=== PATIENT | female | born 1940 | race Caucasian/White ===

== ENCOUNTER 2023-09-18 11:37 | Emergency (ER) | payer BC ==
[~2023-09-18] VITALS: Ht 165.1 cm; Wt 80.0 kg
[2023-09-18 11:41] VITALS: O2SAT 96
[2023-09-18] MEDS ORDERED: PREDNISONE 20MG TABLET PO ONE (12:15)
[2023-09-18] MEDS ORDERED: SODIUM CHLORIDE 0.9% 1,000 ML IV ONE (12:15)
[2023-09-18] MEDS ORDERED: DIPHENHYDRAMINE 50MG/ML VIAL IV ONE (12:15)
[2023-09-18 12:34] LABS: BASOPHILS % 0.2 % (0.0-2.0); HEMATOCRIT. 43.1 % (36.0-48.0); HEMOGLOBIN. 13.9 g/dL (12.0-16.0); LYMPHOCYTES % 12.5 % (20.0-50.0); MEAN CORPUSCULAR HEMOGLOBIN 28.9 pg (28.0-32.0); MEAN CORPUSCULAR HGB CONC 32.2 g/dL (31.0-37.0); MEAN PLATELET VOLUME 8.2 fl (7.4-10.4); MONOCYTES % 5.8 % (2.0-8.0); NEUTROPHILS % 79.5 % (40.0-76.0); PLATELET 233 x1000/uL (130-400); RED BLOOD CELL COUNT 4.79 mill/uL (4.2-5.4); RED CELL DISTRIBUTION WIDTH 14.2 % (11.6-14.6); WHITE BLOOD COUNT 12.5 x1000/uL (4.5-11.0)
[2023-09-18 12:49] LABS: ALANINE AMINOTRANSFERASE 22 IU/L (10-49); ALBUMIN 4.3 g/dL (3.2-4.8); ASPARTATE AMINOTRANSFERASE 38 IU/L (<34); BILIRUBIN TOTAL 0.6 mg/dL (0.1-1.0); CALCIUM 10.3 mg/dL (8.7-10.4); CARBON DIOXIDE 31 mEq/L (21-32); CHLORIDE 103 mEq/L (98-107); CREATININE 1.2 mg/dL (0.6-1.0); GLUCOSE 129 mg/dL (70-105); POTASSIUM 4.3 mEq/L (3.5-5.1); PROTEIN TOTAL 8.3 g/dL (6.0-8.3); SODIUM 142 mEq/L (136-145); TROPONIN I HIGH SENSITIVITY 7 ng/L (3.0-34); UREA NITROGEN BLOOD 12 mg/dL (9-23)
[2023-09-18 13:04] LABS: PROTHROMBIN TIME 10.6 sec (9.6-11.0)
[2023-09-18] MEDS ORDERED: P50 MT (14:24)
[2023-09-18] MEDS ORDERED: DIPH25CA83 MT (14:24)
[2023-09-18 15:05] VITALS: BP 142/71; PULSE 83; RESP 18; TEMP 98.9
== END 2023-09-18 15:12 | disposition home or self-care (01) ==
LOC: ER 11:37
DX: I95.9 Hypotension, unspecified (principal); T36.0X5A Adverse effect of penicillins, initial encounter; Y92.89 Other specified places as the place of occurrence of the external cause; I10 Essential (primary) hypertension
CPT/HCPCS: 99284; 96374; 71045; 96361; 80053; 85025; 85610; 84484; 36415; J7512; J1200; J7030